=== PATIENT | male | born 1990 | race African-American/Black ===

== ENCOUNTER 2024-02-17 15:08 | Emergency (ER) | payer BC, OTHER ==
[2024-02-17 15:21] VITALS: BP 125/89; PULSE 85; RESP 20; TEMP 98.2; BMI 22.1
== END 2024-02-17 15:56 | disposition home or self-care (01) ==
LOC: FER 15:08
DX: M25.542 Pain in joints of left hand (principal); V47.5XXA Car driver injured in collision with fixed or stationary object in traffic accident, initial encounter
CPT/HCPCS: 99283-25